=== PATIENT | female | born 1990 | race American Indian/Alaskan Native ===

== ENCOUNTER 2016-08-10 12:23 | Outpatient (CLI) | payer MEDICAID ==
[2016-08-10 14:05] VITALS: BP 104/57
[2016-08-10 14:49] LABS: Bacteria,Urine 1+ /HPF (Negative); Bilirubin,Urine NEG (Negative); Blood,Urine NEG (Negative); Ketones,Urine NEG (Negative); Leukocyte Esterase,Urine MOD (Negative); Mucus,Urine FEW /HPF; Nitrite,Urine NEG (Negative); Protein,Urine <15 mg/dL mg/dL (Negative); Urobilinogen,Urine < 2.0 mg/dL (<2.0)
--- NOTE | 2016-08-10 16:16 | Ultrasound Report ---
Pelvic and transvaginal sonography: History: Vaginal bleeding. Findings: There is noted single intrauterine gestation. Breech presentation. Placenta is posterior and grade 0. CRYSTAL 14.5 cm. heart rate 143 per minute. Cervical length 2 cm. No placenta abruption. Impression: Single viable intrauterine gestation with breech presentation.
== END 2016-08-10 16:40 | disposition home or self-care (01) ==
LOC: EDSTATUS 13:22 → TRG 13:25 → LD 13:28 → TRG 16:40
PROVIDERS: ATTEND Obstetrics & Gynecology
DX: O26.892 Other specified pregnancy related conditions, second trimester (principal); O46.92 Antepartum hemorrhage, unspecified, second trimester; O32.1XX0 Maternal care for breech presentation, not applicable or unspecified; R51 Headache; Z3A.26 26 weeks gestation of pregnancy
CPT/HCPCS: 76815; 76817; 81001

== ENCOUNTER 2016-10-15 19:21 | Outpatient (CLI) | payer MEDICAID ==
[2016-10-15 19:40] VITALS: BP 110/63
[2016-10-15] MEDS ORDERED: LACTATED RINGERS 1,000 ML IV ONE (19:40)
[2016-10-15 20:04] LABS: Bacteria,Urine 1+ /HPF (Negative); Bilirubin,Urine NEG (Negative); Blood,Urine NEG (Negative); Ketones,Urine NEG (Negative); Leukocyte Esterase,Urine SM (Negative); Mucus,Urine FEW /HPF; Nitrite,Urine NEG (Negative); Protein,Urine <15 mg/dL mg/dL (Negative); Urobilinogen,Urine < 2.0 mg/dL (<2.0)
== END 2016-10-15 20:25 | disposition home or self-care (01) ==
LOC: TRG 19:21
PROVIDERS: ATTEND Obstetrics & Gynecology
DX: O46.93 Antepartum hemorrhage, unspecified, third trimester (principal); Z3A.36 36 weeks gestation of pregnancy
CPT/HCPCS: 59025; 81001

== ENCOUNTER 2018-09-08 09:05 | Emergency (ER) | payer MEDICAID, OTHER ==
[2018-09-08] MEDS ORDERED: MORPHINE IV ONE (10:35)
[2018-09-08] MEDS ORDERED: ZOFRAN IV ONE (10:35)
--- NOTE | 2018-09-08 10:51 | Emergency Department Report ---
ED General Adult HPI - General Chief complaint: Abdominal Pain Stated complaint: WEAK/LOWER ABD PAIN Time Seen by Provider: 09/08/18 09:44 Source: patient Mode of arrival: Ambulatory Limitations: No Limitations - History of Present Illness Initial comments: Patient presents to the emergency department with a chief complaint right lower quadrant pain 1 week. Patient describes the pain as sharp and crampy in nature without any sedating or alleviating symptoms. -: Gradual Location: abdomen Radiation: non-radiation Severity scale (0 -10): 7 Quality: sharp Consistency: constant Improves with: none Worsens with: none Associated Symptoms: denies other symptoms Treatments Prior to Arrival: none - Related Data Previous Rx's Medication Instructions Recorded Last Taken Type Ibuprofen [Motrin 800 MG tab] 800 mg PO TID PRN #30 tablet 10/25/16 Unknown Rx Amoxicillin [Amoxicillin TAB] 875 mg PO BID #14 tablet 06/09/18 Unknown Rx Loratadine [Claritin] 10 mg PO DAILY #20 tablet 06/09/18 Unknown Rx Ofloxacin [Ocuflox] 1 - 2 drops OP BID #5 ml 06/09/18 Unknown Rx Sulfamethoxazole/Trimethoprim 1 each PO BID #14 tablet 09/08/18 Unknown Rx [Bactrim Ds Tablet] traMADol [Ultram] 50 mg PO Q6HR PRN #24 tablet 09/08/18 Unknown Rx Allergies Allergy/AdvReac Type Severity Reaction Status Date / Time No Known Allergies Allergy Verified 04/07/15 02:59 ED Review of Systems ROS: Stated complaint: WEAK/LOWER ABD PAIN Other details as noted in HPI Constitutional: denies: chills, fever Eyes: denies: eye pain, eye discharge, vision change ENT: denies: ear pain, throat pain Respiratory: denies: cough, shortness of breath, wheezing Cardiovascular: denies: chest pain, palpitations Endocrine: no symptoms reported Gastrointestinal: abdominal pain. denies: nausea, diarrhea Genitourinary: denies: urgency, dysuria, discharge Musculoskeletal: denies: back pain, joint swelling, arthralgia Skin: denies: rash, lesions Neurological: denies: headache, weakness, paresthesias Psychiatric: denies: anxiety, depression Hematological/Lymphatic: denies: easy bleeding, easy bruising ED Past Medical Hx - Past Medical History Hx Hypertension: No Hx Congestive Heart Failure: No Hx Diabetes: No Hx Deep Vein Thrombosis: No Hx Renal Disease: No Hx Sickle Cell Disease: No Hx Seizures: No Hx Asthma: No Hx COPD: No Hx HIV: No Additional medical history: pinched nerve to neck - Surgical History Additional Surgical History: vaginal x3 - Social History Smoking Status: Never Smoker Substance Use Type: None - Medications Home Medications: Home Medications Medication Instructions Recorded Confirmed Last Taken Type Ibuprofen [Motrin 800 MG tab] 800 mg PO TID PRN #30 tablet 10/25/16 Unknown Rx Amoxicillin [Amoxicillin TAB] 875 mg PO BID #14 tablet 06/09/18 Unknown Rx Loratadine [Claritin] 10 mg PO DAILY #20 tablet 06/09/18 Unknown Rx Ofloxacin [Ocuflox] 1 - 2 drops OP BID #5 ml 06/09/18 Unknown Rx Sulfamethoxazole/Trimethoprim 1 each PO BID #14 tablet 09/08/18 Unknown Rx [Bactrim Ds Tablet] traMADol [Ultram] 50 mg PO Q6HR PRN #24 tablet 09/08/18 Unknown Rx ED Physical Exam - General Limitations: No Limitations General appearance: alert, in no apparent distress - Head Head exam: Present: atraumatic, normocephalic - Eye Eye exam: Present: normal appearance, PERRL, EOMI - ENT ENT exam: Present: mucous membranes moist - Neck Neck exam: Present: normal inspection - Respiratory Respiratory exam: Present: normal lung sounds bilaterally. Absent: respiratory distress, wheezes, rales - Cardiovascular Cardiovascular Exam: Present: regular rate, normal rhythm. Absent: systolic murmur, diastolic murmur, rubs, gallop - GI/Abdominal GI/Abdominal exam: Present: soft, tenderness (ttp rlq), normal bowel sounds. Absent: distended - Extremities Exam Extremities exam: Present: normal inspection - Back Exam Back exam: Present: normal inspection - Neurological Exam Neurological exam: Present: alert, oriented X3, CN II-XII intact. Absent: motor sensory deficit - Psychiatric Psychiatric exam: Present: normal affect, normal mood - Skin Skin exam: Present: warm, dry, intact, normal color. Absent: rash ED Course Vital Signs 09/08/18 09/08/18 10:58 13:22 Temperature 98.2 F Pulse Rate 64 Respiratory 18 16 Rate Blood Pressure 93/60 Blood Pressure 93/60 [Left] O2 Sat by Pulse 98 Oximetry ED Medical Decision Making - Lab Data Result diagrams: 09/08/18 10:45 09/08/18 10:45 Lab Results 09/08/18 09/08/18 09/08/18 Range/Units 10:45 10:45 10:55 WBC 12.5 H (4.5-11.0) K/mm3 RBC 3.59 L (3.65-5.03) M/mm3 Hgb 10.8 (10.1-14.3) gm/dl Hct 30.6 (30.3-42.9) % MCV 85 (79-97) fl MCH 30 (28-32) pg MCHC 35 H (30-34) % RDW 13.0 L (13.2-15.2) % Plt Count 350 (140-440) K/mm3 Lymph % (Auto) 12.5 L (13.4-35.0) % [place]ard % (Auto) 8.6 H (0.0-7.3) % Eos % (Auto) 0.7 (0.0-4.3) % Baso % (Auto) 0.6 (0.0-1.8) % Lymph # 1.6 (1.2-5.4) K/mm3 Garrard # 1.1 H (0.0-0.8) K/mm3 Eos # 0.1 (0.0-0.4) K/mm3 Baso # 0.1 (0.0-0.1) K/mm3 Seg Neutrophils % 77.6 H (40.0-70.0) % Seg Neutrophils # 9.7 H (1.8-7.7) K/mm3 Sodium 139 (137-145) mmol/L Potassium 3.2 L (3.6-5.0) mmol/L Chloride 99.0 (98-107) mmol/L Carbon Dioxide 27 (22-30) mmol/L Anion Gap 16 mmol/L BUN 5 L (7-17) mg/dL Creatinine 0.7 (0.7-1.2) mg/dL Estimated GFR > 60 ml/min BUN/Creatinine Ratio 7 % Glucose 94 (65-100) mg/dL Calcium 8.7 (8.4-10.2) mg/dL Total Bilirubin 0.50 (0.1-1.2) mg/dL AST 12 (5-40) units/L ALT 11 (7-56) units/L Alkaline Phosphatase 61 (35-129) units/L Total Protein 7.2 (6.3-8.2) g/dL Albumin 3.6 L (3.9-5) g/dL Albumin/Globulin Ratio 1.0 % Urine Color Yessy (Yellow) Urine Turbidity Slightly-cloudy (Clear) Urine pH 6.0 (5.0-7.0) Ur Specific [place] 1.030 (1.003-1.030) Urine Protein 30 mg/dl (Negative) mg/dL Urine Glucose (UA) Neg (Negative) mg/dL Urine Ketones 80 (Negative) mg/dL Urine Blood Sm (Negative) Urine Nitrite Pos (Negative) Urine Bilirubin Neg (Negative) Urine Urobilinogen 4.0 (<2.0) mg/dL Ur Leukocyte Esterase Sm (Negative) Urine WBC (Auto) 12.0 H (0.0-6.0) /HPF Urine RBC (Auto) 6.0 (0.0-6.0) /HPF U Epithel Cells (Auto) 4.0 (0-13.0) /HPF Urine Bacteria (Auto) 3+ (Negative) /HPF Urine Mucus 3+ /HPF Urine HCG, Qual Negative (Negative) - Radiology Data Radiology results: report reviewed - Medical Decision Making Discussed results with the patient Critical care attestation.: If time is entered above; I have spent that time in minutes in the direct care of this critically ill patient, excluding procedure time. ED Disposition Clinical Impression: Ovarian cyst, UTI (urinary tract infection) Disposition: TO HOME OR SELFCARE Is pt being admited?: No Does the pt Need Aspirin: No Condition: Stable Instructions: Ovarian Cyst (ED), Urinary Tract Infection in Women (ED), Abdominal Pain (ED) Prescriptions: Sulfamethoxazole/Trimethoprim [Bactrim Ds Tablet] 1 each PO BID #14 tablet traMADol [Ultram] 50 mg PO Q6HR PRN #24 tablet PRN Reason: Pain Referrals: ANA LOVE MD [Primary Care Provider] - 3-5 Days [facility] [Provider Group] - 3-5 Days [facility] [Provider Group] - 3-5 Days [facility] [Outside] - 3-5 Days Time of Disposition: 14:05
[2018-09-08 11:09] LABS: Basophils # (Auto) 0.1 K/mm3 (0.0-0.1); Basophils % (Auto) 0.6 % (0.0-1.8); Eosinophils # (Auto) 0.1 K/mm3 (0.0-0.4); Eosinophils % (Auto) 0.7 % (0.0-4.3); Hematocrit 30.6 % (30.3-42.9); Hemoglobin 10.8 gm/dl (10.1-14.3); Lymphocytes # (Auto) 1.6 K/mm3 (1.2-5.4); Lymphocytes % (Auto) 12.5 % (13.4-35.0); Mean Corpuscular HGB Conc 35 % (30-34); Mean Corpuscular Volume 85 fl (79-97); Monocytes # (Auto) 1.1 K/mm3 (0.0-0.8); Monocytes % (Auto) 8.6 % (0.0-7.3); Platelet Count 350 K/mm3 (140-440); Red Blood Count 3.59 M/mm3 (3.65-5.03)
[2018-09-08 11:12] LABS: Alanine Aminotransferase 11 units/L (7-56); Albumin 3.6 g/dL (3.9-5); BUN/Creatinine Ratio 7; Blood Urea Nitrogen 5 mg/dL (7-17); Calcium 8.7 mg/dL (8.4-10.2); Hemolysis Index 4
[2018-09-08 11:12] LABS: Bacteria,Urine 3+ /HPF (Negative); Bilirubin,Urine NEG (Negative); Blood,Urine SM (Negative); Color,Urine Amber (Yellow); Mucus,Urine 3+ /HPF
[2018-09-08 11:26] LABS: HCG Qualitative,Urine Negative (Negative)
[2018-09-08 13:27] VITALS: BP 93/60
--- NOTE | 2018-09-08 13:48 | Cat Scan Report ---
CT abdomen and pelvis without contrast: Right lower quadrant pain. Transverse images are obtained from lower chest to the ischium with coronal and sagittal 2-D reformatted images. Imaging of the lung bases is unremarkable. The abdominal and retroperitoneal organs appear unremarkable. There no obvious abnormalities identified in the unopacified small bowel and large bowel loops. The appendix is questionably identified and appears normal. There is no apparent abdominal mass and no free fluid noted. There is a midline hernia of the umbilicus containing a well-distended small bowel loop. Images through the pelvis demonstrate what appears to be bilateral ovarian cysts measuring approximately 2.1 cm on the right and 1.6 cm on the left. No free fluid identified. The uterus is present. The bony structures appear generally unremarkable. Impressions: 1. No acute pathology identified. 2. Nonobstructing umbilical hernia containing a small bowel loop.
== END 2018-09-08 14:26 | disposition home or self-care (01) ==
LOC: ED 09:05
DX: N83.209 Unspecified ovarian cyst, unspecified side (principal)
CPT/HCPCS: 36415; 74176; 80053; 81001; 81025; 85025; 96374; 96375; 99284; J2270; J2405

== ENCOUNTER 2021-12-04 06:50 | Emergency (ER) | payer OTHER ==
--- NOTE | 2021-12-04 08:24 | Emergency Department Report ---
ED Female HPI - General Chief complaint: Vaginal Bleeding Stated complaint: CRAMPS Time Seen by Provider: 12/04/21 07:29 Source: patient Mode of arrival: Ambulatory Limitations: No Limitations - History of Present Illness Initial comments: 31-year-old black female with no past medical history presents to the emergency department for evaluation of 2 to 3-week history of intermittent lower abdominal pain, back pain, and vaginal bleeding and spotting. She states that pain and spotting is very minimal sometimes then other times becomes more severe. She states that pain that is worse is 8 out of 10, and sometimes she has clots with her vaginal bleeding. She denies dysuria, fever, and vaginal discharge. She states that her last normal period was the end of October. She is G4, P4. MD Complaint: vaginal bleeding, other (Abdominal pain) -: Gradual, week(s) (2-3) Location: LLQ, RLQ Radiation: R flank Severity: severe Severity scale (0 -10): 8 Quality: cramping, aching Consistency: intermittent Are you Now?: No Last Menstrual Period: 10/30/21 EDC: 08/06/22 Associated Symptoms: vaginal bleeding, abdominal pain. denies: vaginal discharg e, nausea/vomiting, fever/chills, headaches, loss of appetite, dysuria, hematuria, rash, seizure, shortness of breath, syncope, weakness - Related Data Sexually active: Yes Previous Rx's Medication Instructions Recorded Last Taken Type Ibuprofen [Motrin 800 MG tab] 800 mg PO TID PRN #30 tablet 10/25/16 Unknown Rx Amoxicillin [Amoxicillin TAB] 875 mg PO BID #14 tablet 06/09/18 Unknown Rx Loratadine (Nf) [Claritin (Nf)] 10 mg PO DAILY #20 tablet 06/09/18 Unknown Rx Ofloxacin [Ocuflox] 1 - 2 drops OP BID #5 ml 06/09/18 Unknown Rx Sulfamethoxazole/Trimethoprim 1 each PO BID #14 tablet 09/08/18 Unknown Rx [Bactrim Ds Tablet] traMADoL [Ultram] 50 mg PO Q6HR PRN #24 tablet 09/08/18 Unknown Rx Naproxen [Naprosyn] 500 mg PO BID 7 Days #14 tab 12/04/21 Unknown Rx Allergies Allergy/AdvReac Type Severity Reaction Status Date / Time No Known Allergies Allergy Verified 04/07/15 02:59 ED Review of Systems ROS: Stated complaint: CRAMPS Other details as noted in HPI Comment: All other systems reviewed and negative Constitutional: denies: chills, fever ENT: denies: congestion Respiratory: denies: shortness of breath Cardiovascular: denies: chest pain, palpitations Gastrointestinal: abdominal pain. denies: nausea, vomiting, diarrhea, hematemesis, melena, hematochezia Genitourinary: denies: urgency, dysuria Musculoskeletal: back pain Skin: denies: rash, lesions Neurological: denies: headache, weakness ED Past Medical Hx - Past Medical History Hx Hypertension: No Hx Congestive Heart Failure: No Hx Diabetes: No Hx Deep Vein Thrombosis: No Hx Renal Disease: No Hx Sickle Cell Disease: No Hx Seizures: No Hx Asthma: No Hx COPD: No Hx HIV: No Additional medical history: pinched nerve to neck - Surgical History Additional Surgical History: vaginal x3 - Social History Smoking Status: Never Smoker Substance Use Type: None - Medications Home Medications: Home Medications Medication Instructions Recorded Confirmed Last Taken Type Ibuprofen [Motrin 800 MG tab] 800 mg PO TID PRN #30 tablet 10/25/16 Unknown Rx Amoxicillin [Amoxicillin TAB] 875 mg PO BID #14 tablet 06/09/18 Unknown Rx Loratadine (Nf) [Claritin (Nf)] 10 mg PO DAILY #20 tablet 06/09/18 Unknown Rx Ofloxacin [Ocuflox] 1 - 2 drops OP BID #5 ml 06/09/18 Unknown Rx Sulfamethoxazole/Trimethoprim 1 each PO BID #14 tablet 09/08/18 Unknown Rx [Bactrim Ds Tablet] traMADoL [Ultram] 50 mg PO Q6HR PRN #24 tablet 09/08/18 Unknown Rx Naproxen [Naprosyn] 500 mg PO BID 7 Days #14 tab 12/04/21 Unknown Rx ED Physical Exam - General Limitations: No Limitations General appearance: alert, in no apparent distress - Head Head exam: Present: atraumatic, normocephalic - Eye Eye exam: Present: normal appearance. Absent: conjunctival injection, periorbi alec swelling, periorbital tenderness - ENT ENT exam: Present: normal exam - Neck Neck exam: Present: normal inspection. Absent: tenderness, lymphadenopathy - Respiratory Respiratory exam: Present: normal lung sounds bilaterally. Absent: respiratory distress, wheezes, rales, rhonchi, stridor, chest wall tenderness - Cardiovascular Cardiovascular Exam: Present: regular rate, normal heart sounds - GI/Abdominal GI/Abdominal exam: Present: soft, normal bowel sounds. Absent: distended, tenderness, guarding, rebound, rigid - Extremities Exam Extremities exam: Present: normal inspection, normal capillary refill. Absent: pedal edema, joint swelling, calf tenderness - Back Exam Back exam: Present: normal inspection. Absent: CVA tenderness (R), CVA tenderness (L), vertebral tenderness - Neurological Exam Neurological exam: Present: alert, oriented X3, normal gait - Psychiatric Psychiatric exam: Present: normal affect, normal mood - Skin Skin exam: Present: warm, dry, intact, normal color ED Course Vital Signs 12/04/21 06:58 Temperature 98.1 F Pulse Rate 84 Respiratory 18 Rate Blood Pressure 130/75 O2 Sat by Pulse 100 Oximetry ED Medical Decision Making - Lab Data Result diagrams: 12/04/21 07:31 12/04/21 09:29 - Radiology Data Radiology results: report reviewed, image reviewed CT of the abdomen and pelvis without contrast: FINDINGS: Lung Bases: No significant abnormality. Skeletal System: No acute abnormality. ABDOMEN: Liver: No significant abnormality. Gallbladder: No significant abnormality. Bile Ducts: No significant abnormality. Adrenals: No significant abnormality. Right Kidney: No significant abnormality. Left Kidney: No significant abnormality. Pancreas: No significant abnormality. Spleen: No significant abnormality. Upper GI tract: No significant abnormality. Lymph Nodes: No significant adenopathy. Aorta: No significant abnormality. Additional Findings: Mild rectus diastases is again noted at the umbilicus. PELVIS: Colon: No significant abnormality. Urinary Bladder and Distal Ureters: No significant abnormality. Appendix: No significant abnormality. Lymph Nodes: No significant adenopathy. Additional Findings: None. IMPRESSION: 1. Within the limitations of non contrast technique, no acute process in the abdomen or pelvis. 2. Incidental findings, as above. - Medical Decision Making 31-year-old black female with no past medical history presents to the emergency department for evaluation of 2 to 3-week history of intermittent lower abdominal pain, back pain, and vaginal bleeding and spotting. She states that pain and spotting is very minimal sometimes then other times becomes more severe. She states that pain that is worse is 8 out of 10, and sometimes she has clots with her vaginal bleeding. She denies dysuria, fever, and vaginal discharge. She states that her last normal period was the end of October. She is G4, P4. Physical exam unremarkable. Labs and urine without any gross abnormalities, CT of the abdomen and pelvis without any acute abnormalities noted. Patient will be treated with 7-day course of naproxen to improve vaginal bleeding and advised to follow-up with primary care provider or [facility] for further evaluation and ma luis manuel. She is advised to return to the emergency department for any concerning symptoms. She verbalizes understanding of and agreement with plan of care. Critical care attestation.: If time is entered above; I have spent that time in minutes in the direct care of this critically ill patient, excluding procedure time. ED Disposition Clinical Impression: Abnormal vaginal bleeding Abdominal pain Qualifiers: Abdominal location: generalized Qualified Code(s): R10.84 - Generalized abdominal pain Disposition: HOME / SELF CARE / HOMELESS Is pt being admited?: No Does the pt Need Aspirin: No Condition: Stable Instructions: Abdominal Pain, Adult, [id number], Abnormal Uterine Bleeding, [id number] Additional Instructions: Take medications as prescribed. Follow-up with primary care provider or [facility] if no improvement or worsening symptoms. Return to the emergency department as needed. Prescriptions: Naproxen [Naprosyn] 500 mg PO BID 7 Days #14 tab Referrals: SLAVA HOLT MD [Staff Physician] - 3-5 Days NUSRAT JACINTO MD [Staff Physician] - 3-5 Days Time of Disposition: 11:12
[2021-12-04 08:33] LABS: Hematocrit 35.7 % (30.3-42.9); Hemoglobin 11.8 gm/dl (10.1-14.3); Mean Corpuscular HGB Conc 33 % (30-34); Mean Corpuscular Volume 89 fl (79-97); Platelet Count 248 K/mm3 (140-440); Red Blood Count 4.02 M/mm3 (3.65-5.03); Red Cell Distribution Width 13.7 % (13.2-15.2)
[2021-12-04] MEDS ORDERED: KETOROLAC 10 MG TAB PO ONE (08:47)
[2021-12-04] MEDS ORDERED: ONDANSETRON 4 MG ODT TAB PO ONE (08:47)
--- NOTE | 2021-12-04 09:28 | Cat Scan Report ---
CT ABDOMEN AND PELVIS WITHOUT IV CONTRAST INDICATION: abdominal pain. COMPARISON: CT 09/08/2018. TECHNIQUE: All CT scans at this facility use dose modulation, automated exposure control, iterative reconstructi on or weight based dosing, when appropriate, to reduce radiation dose to as low as reasonably achieva ble. FINDINGS: Lung Bases: No significant abnormality. Skeletal System: No acute abnormality. ABDOMEN: Liver: No significant abnormality. Gallbladder: No significant abnormality. Bile Ducts: No significant abnormality. Adrenals: No significant abnormality. Right Kidney: No significant abnormality. Left Kidney: No significant abnormality. Pancreas: No significant abnormality. Spleen: No significant abnormality. Upper GI tract: No significant abnormality. Lymph Nodes: No significant adenopathy. Aorta: No significant abnormality. Additional Findings: Mild rectus diastases is again noted at the umbilicus. PELVIS: Colon: No significant abnormality. Urinary Bladder and Distal Ureters: No significant abnormality. Appendix: No significant abnormality. Lymph Nodes: No significant adenopathy. Additional Findings: None. IMPRESSION: 1. Within the limitations of non contrast technique, no acute process in the abdomen or pelvis. 2. Incidental findings, as above. Signer Name: Gustavo Franz MD Signed: 12/04/2021 9:23 AM Workstation Name: [id number]
[2021-12-04 10:36] LABS: Alanine Aminotransferase 10 units/L (7-56); Albumin 4.1 g/dL (3.9-5); BUN/Creatinine Ratio 15; Blood Urea Nitrogen 12 mg/dL (7-17); Calcium 9.3 mg/dL (8.4-10.2); Hemolysis Index 8
[2021-12-04 10:38] LABS: Bacteria,Urine 1+ /HPF (Negative); Mucus,Urine FEW /HPF
[2021-12-04 10:44] LABS: Bilirubin,Urine Negative (Negative); Color,Urine Yellow (Yellow)
[2021-12-04 10:45] LABS: Blood,Urine Large (Negative); Urobilinogen,Urine < 2.0 mg/dL (<2.0)
[2021-12-04 11:20] VITALS: BP 136/81
[2021-12-04 12:48] LABS: Basophils % (Manual) 0 % (0.0-1.8); Platelet Estimate Consistent w Auto; RBC Morphology Normal; Total Cells Counted 100
== END 2021-12-04 12:25 | disposition home or self-care (01) ==
LOC: ED 06:50
DX: N93.9 Abnormal uterine and vaginal bleeding, unspecified (principal); R10.31 Right lower quadrant pain; R10.32 Left lower quadrant pain
CPT/HCPCS: 36415; 74176; 80053; 81001; 84702; 85007; 85025; 86900; 86901; 99284; J3490; Q0162